=== PATIENT | male | born 2000 | race Caucasian/White ===

== ENCOUNTER 2018-01-13 19:22 | Emergency (ER) | payer SELFPAY ==
[~2018-01-13] VITALS: Ht 182.9 cm; Wt 82.0 kg
[2018-01-13] MEDS ORDERED: LIDOCAINE HCL 1% 20ML VIAL (Pyxis) INJ MC ONE (23:00)
[2018-01-13] MEDS ORDERED: BACITRACIN ZINC OINT UDPKT TOP ONE (23:00)
[2018-01-14 01:10] VITALS: BP 121/63
== END 2018-01-14 01:10 | disposition home or self-care (01) ==
LOC: ER 20:39
DX: S01.81XA Laceration without foreign body of other part of head, initial encounter (principal); S30.811A Abrasion of abdominal wall, initial encounter; S80.812A Abrasion, left lower leg, initial encounter; S80.811A Abrasion, right lower leg, initial encounter; S40.812A Abrasion of left upper arm, initial encounter; S40.811A Abrasion of right upper arm, initial encounter; F12.10 Cannabis abuse, uncomplicated; W18.30XA Fall on same level, unspecified, initial encounter; Y93.51 Activity, roller skating (inline) and skateboarding; Y92.89 Other specified places as the place of occurrence of the external cause; Y99.8 Other external cause status
CPT/HCPCS: 12013; 99283; J3490; X7700

== ENCOUNTER 2018-01-28 15:44 | Emergency (ER) | payer SELFPAY ==
[~2018-01-28] VITALS: Ht 182.9 cm; Wt 82.0 kg
[2018-01-28 16:04] VITALS: BP 140/94
== END 2018-01-28 16:28 | disposition home or self-care (01) ==
LOC: ER 16:14
DX: S01.81XD Laceration without foreign body of other part of head, subsequent encounter (principal); F17.200 Nicotine dependence, unspecified, uncomplicated; F12.10 Cannabis abuse, uncomplicated; X58.XXXD Exposure to other specified factors, subsequent encounter
CPT/HCPCS: 99281; Z7610

== ENCOUNTER 2019-01-14 15:59 | Emergency (ER) | payer SELFPAY ==
[~2019-01-14] VITALS: Ht 170.2 cm; Wt 83.0 kg
[2019-01-14] MEDS ORDERED: LIDOCAINE HCL/PF 1% 10 MG/ML 5ML VIAL IJ ONE (16:45)
[2019-01-14] MEDS ORDERED: BACITRACIN ZINC OINT UDPKT TOP ONE (16:45)
[2019-01-14] MEDS ORDERED: IBUPROFEN 600MG TABLET PO ONE (16:45)
[2019-01-14] MEDS ORDERED: ACETAMINOPHEN WITH CODEINE 300/30MG TABLET PO ONE (17:45)
[2019-01-14 18:48] VITALS: BP 128/78
== END 2019-01-14 18:51 | disposition home or self-care (01) ==
LOC: ER 15:59
DX: S01.81XA Laceration without foreign body of other part of head, initial encounter (principal); V00.131A Fall from skateboard, initial encounter; Y93.89 Activity, other specified; Y92.89 Other specified places as the place of occurrence of the external cause
CPT/HCPCS: 12002; 70450; 99284; J3490; Z7610

== ENCOUNTER 2019-01-22 15:00 | Emergency (ER) | payer SELFPAY ==
[~2019-01-22] VITALS: Ht 182.9 cm; Wt 78.0 kg
[2019-01-22] MEDS ORDERED: TRAMADOL 50MG TABLET PO ONE (18:00)
[2019-01-22] MEDS ORDERED: BACITRACIN ZINC OINT UDPKT TOP ONE (18:15)
[2019-01-22 18:29] VITALS: BP 118/75
== END 2019-01-22 18:30 | disposition home or self-care (01) ==
LOC: ER 15:00
DX: S01.81XD Laceration without foreign body of other part of head, subsequent encounter (principal); X58.XXXD Exposure to other specified factors, subsequent encounter; F17.200 Nicotine dependence, unspecified, uncomplicated
CPT/HCPCS: 99282

== ENCOUNTER 2019-04-25 21:42 | Emergency (ER) | payer MEDICAID ==
[~2019-04-25] VITALS: Ht 182.9 cm; Wt 82.0 kg
[2019-04-25] MEDS ORDERED: HYDROCODONE/ACETAMINOPHEN 10/325MG TABLET PO ONE (23:45)
[2019-04-25] MEDS ORDERED: BACITRACIN ZINC OINT UDPKT TOP ONE (23:45)
[2019-04-25] MEDS ORDERED: LIDOCAINE HCL/PF 1% 10 MG/ML 5ML VIAL IJ ONE (23:45)
[2019-04-26] MEDS ORDERED: HYDROCODONE/ACETAMINOPHEN 5/325MG TABLET PO ONE (01:15)
[2019-04-26] MEDS ORDERED: IBUPROFEN 800MG TABLET PO ONE (01:15)
[2019-04-26 01:23] LABS: *AMPHETAMINES SCREEN URINE NEGATIVE (NEGATIVE)
[2019-04-26 01:24] LABS: *BARBITURATES SCREEN URINE NEGATIVE (NEGATIVE); *BENZODIAZEPINES SCREEN URINE NEGATIVE (NEGATIVE); *COCAINE SCREEN URINE NEGATIVE (NEGATIVE); METHADONE URINE SCREEN NEGATIVE (NEGATIVE); OPIATES URINE SCREEN PRESUMTIVE POSITIVE (NEGATIVE); PHENCYCLIDINE URINE SCREEN NEGATIVE (NEGATIVE)
[2019-04-26 01:25] LABS: CANNABINOID URINE SCREEN PRESUMTIVE POSITIVE (NEGATIVE)
[2019-04-26 02:08] VITALS: BP 133/78
== END 2019-04-26 02:13 | disposition home or self-care (01) ==
LOC: ER 21:42
DX: S01.81XA Laceration without foreign body of other part of head, initial encounter (principal); Y04.2XXA Assault by strike against or bumped into by another person, initial encounter; Y93.89 Activity, other specified; Y92.512 Supermarket, store or market as the place of occurrence of the external cause
CPT/HCPCS: 12001; 36415; 70450; 80305; 80320; 99284; J3490; G0480

== ENCOUNTER 2019-05-09 14:39 | Emergency (ER) | payer MEDICAID ==
[~2019-05-09] VITALS: Ht 182.9 cm; Wt 82.0 kg
[2019-05-09 15:24] VITALS: BP 155/77
== END 2019-05-09 16:16 | disposition home or self-care (01) ==
LOC: ER 14:39
DX: S01.01XD Laceration without foreign body of scalp, subsequent encounter (principal); F17.200 Nicotine dependence, unspecified, uncomplicated; X58.XXXD Exposure to other specified factors, subsequent encounter
CPT/HCPCS: 99281